=== PATIENT | male | born 1995 | race Caucasian/White ===

== ENCOUNTER 2020-05-12 16:42 | Emergency (ER) | payer MEDICAID, OTHER ==
[~2020-05-12] VITALS: Ht 167.6 cm; Wt 96.2 kg
[2020-05-12 17:12] VITALS: BP 131/96
[2020-05-12] MEDS ORDERED: azithromycin 250mg tablet PO ONE (17:15)
[2020-05-12] MEDS ORDERED: CefTRIAXone 250MG IM Kit w/LIDOcaine IM ONE (17:15)
[2020-05-12 17:49] LABS: CLARITY,URINE TURBID (Clear); COLOR,URINE YELLOW (Yellow); GLUCOSE, URINE NEGATIVE (Neg); KETONES,URINE TRACE mg/dl (Neg); LEUKOCYTE ESTERASE ,URINE LARGE (Neg); NITRITES, URINE NEGATIVE (Neg); OCCULT BLOOD,URINE MODERATE (Neg); PROTEIN,URINE 100 mg/dl (Neg); UROBILINOGEN,URINE 0.2 E.U/dL (0.2-1.0)
[2020-05-12 17:50] LABS: UA COLLECTION TYPE CLN CATCH MIDSTREAM
[2020-05-12 18:12] LABS: SQUAMOUS EPITHELIAL CELL,UR FEW /LPF (FEW); TRANSITIONAL EPI CELLS,URINE FEW /HPF; WBC,URINE TNTC /HPF (0-4)
[2020-05-12 18:14] LABS: BACTERIA,URINE FEW /HPF (Neg); MUCUS STRANDS MODERATE /LPF (Neg); RBC,URINE 0-2 /HPF (0-2)
[2020-05-12] MEDS ORDERED: CEPH250T PO (18:25)
== END 2020-05-12 18:37 | disposition home or self-care (01) ==
LOC: ER 16:43
DX: N39.0 Urinary tract infection, site not specified (principal); R30.0 Dysuria; Z79.2 Long term (current) use of antibiotics
CPT/HCPCS: 36415; 81001; 87088; 87491; 87591; 96372; 99283; J0696